=== PATIENT | female | born 1955 | race Two or more races ===

== ENCOUNTER 2021-04-09 08:29 | Day surgery (SDC) | payer OTHER ==
[~2021-04-09 08:29] MED LIST: CARAFATE1 GM PO; GLIMEPIRIDE1 MG; ISOSORBIDE DINI30 MG PO; LEVO-T25 MCG PO; LIPITOR20 MG PO; PREVACID15 M1 PO; VOLTAREN ARTHRI20 GM; ZESTRIL2.5 MG PO
== END 2021-04-09 18:00 | disposition home or self-care (01) ==
LOC: CIR.AMB 08:29
PROVIDERS: ATTEND Colon & Rectal Surgery
DX: K62.4 Stenosis of anus and rectum (principal); Z20.822 Contact with and (suspected) exposure to COVID-19